=== PATIENT | male | born 1950 | race Caucasian/White ===

== ENCOUNTER → 2016-05-18 | Outpatient (CLI) | payer BC ==
[~2016-05-18] MED LIST: ACETAMINOPHEN PO; ACETAMINOPHEN325 MG PO; ACID CONTROL150 M1 PO; ALL DAY ALLERGY10 M2 PO; ASPIRIN EC81 M1 PO; CLARITIN R10 MG REDI PO; EPLERENONE25 MG PO; ESCITALOPRAM OX10 MG PO; HYDRALAZINE HCL25 MG PO; KLOR-CON SPRIN10 MEQ PO; LASIX20 MG PO; METOPROLOL TART25 MG PO; MONTELUKAST SOD10 MG PO; MULTI-VITAMIN1 EAC1 PO; NORVASC10 MG PO; VIMPAT100 MG PO; ZYLOPRIM100 MG PO
--- NOTE | ~2016-05-18 | CR63 ---
[facility] A Service of [facility] & [facility] RADIOLOGY TEXT RESULTS PATIENT: VI LUCERO LOCATION: [facility] : 54 UNIT #: [id number] AGE: [address]: JOY BANKS MD SEX: M ORDER DR: [id number] [facility] [address] [place], [place] [address] [id number] O MR#: [id number] Acc #: [id number] NAME: VI LUCERO : 1950 SEX: M STUDY DATE/TIME: 05/18/2016 17:23 UNIT: [facility] ROOM: STUDY DESCRIPTION: CR Chest 2 View Attending Physician: Joy Banks M.D. Ordering Physician: Joy Banks M.D. Primary Care Physician: Joy Banks M.D. MEDICAL IMAGING REPORT This report is preliminary unless electronic signature is present EXAM PA and lateral chest HISTORY Shortness of air and back pain for 6 months. FINDINGS 2 views of the chest demonstrate the cardiac size and pulmonary vascularity are normal. No infiltrates or effusions. Multiple old lateral right rib fractures. Moderate hypertrophic spurring in the mid and lower thoracic spine. IMPRESSION No acute findings Dictated by... Uday Miner M.D. THIS IS AN ELECTRONICALLY VERIFIED REPORT Uday Miner M.D. at 05/19/2016 11:20 PM DFL/anthony TD: 05/19/2016 05:20 JOB #: [id number] MEDICAL IMAGING REPORT Page 1 of 1 COPY
--- NOTE | ~2016-05-18 | CR184 ---
[facility] A Service of [facility] & [facility] RADIOLOGY TEXT RESULTS PATIENT: VI LUCERO LOCATION: [facility] : 54 UNIT #: [id number] AGE: [address]: JOY BANKS MD SEX: M ORDER DR: [id number] [facility] [address] [place], [place] [address] [id number] O MR#: [id number] Acc #: [id number] NAME: VI LUCERO : 1950 SEX: M STUDY DATE/TIME: 05/18/2016 17:24 UNIT: [facility] ROOM: STUDY DESCRIPTION: CR Lumbar Spine Min 4 Views Attending Physician: Joy Banks M.D. Ordering Physician: Joy Banks M.D. Primary Care Physician: Joy Banks M.D. MEDICAL IMAGING REPORT This report is preliminary unless electronic signature is present EXAM Lumbar spine, 5 views. HISTORY Chronic back pain for 4 months. No injury. FINDINGS 5 views of the lumbar spine demonstrate mild disc space narrowing at L2-L3 and L3-L4. Xufg-[id number] hypertrophic changes, upper and lower lumbar spine. No fracture or subluxation. No spondylolysis. IMPRESSION 1. No acute findings. 2. Cmsd-ed-aayfvtes hypertrophic and degenerative changes, upper and lower lumbar spine. 3. No fracture or subluxation. Dictated by... Uday Miner M.D. THIS IS AN ELECTRONICALLY VERIFIED REPORT Uday Miner M.D. at 05/19/2016 11:20 PM DFL/anatoliy TD: 05/19/2016 06:31 JOB #: [id number] MEDICAL IMAGING REPORT Page 1 of 1 COPY
== END | disposition home or self-care (01) ==
LOC: CRAD 16:58
DX: R06.02 Shortness of breath (principal); M54.5 Low back pain; M47.816 Spondylosis without myelopathy or radiculopathy, lumbar region
CPT/HCPCS: 71020; 72110